=== PATIENT | female | born 1970 | race Two or more races ===

== ENCOUNTER 2022-11-12 22:19 | Emergency (ER) | payer MEDICAID, OTHER ==
[~2022-11-12] VITALS: Ht 149.9 cm; Wt 109.0 kg
[2022-11-12 23:28] VITALS: BP 151/75
[2022-11-12 23:48] LABS: Urine Bacteria NONE SEEN /hpf (None Seen); Urine Blood Negative /uL (Negative); Urine Specific Gravity 1.014 (1.001-1.035); Urine WBC 6 /hpf (0 - 5)
[2022-11-13 00:58] LABS: Basophils # (auto) 0.1 10 ^3/uL (0-0.2); Eosinophils # (auto) 0.1 10 ^3/uL (0-0.8); Hemoglobin 13.1 g/dL (12.2-16.2); Monocytes # (auto) 0.5 10 ^3/uL (0-1.3)
[2022-11-13 01:00] LABS: Basophils % (auto) 0.7 % (0.0-2.0); Eosinophils % (auto) 1.9 % (0.0-7.0); Hematocrit 39.7 % (36.0-46.0); Lymphocytes # (auto) 2.6 10 ^3/uL (0.4-5.4); Lymphocytes % (auto) 37.1 % (10.0-50.0); Mean Corpuscular Hemoglobin 26.7 pg (28.0-32.0); Mean Corpuscular Hgb Conc. 32.9 g/dL (32.0-36.0); Monocytes % (auto) 7.3 % (0.0-12.0); Neutrophils # (auto) 3.8 10 ^3/uL (1.6-8.6); Nucleated Red Blood Cells % 0.1 %; Red Cell Distribution Width 15.7 % (11.8-14.3); White Blood Cell 7.1 10^3/uL (4.4-10.8)
[2022-11-13 01:16] LABS: Albumin 3.1 g/dL (3.4-5.0)
[2022-11-13 01:24] LABS: BUN/Creatinine Ratio 23.8 (10.0-20.0); Total Protein 7.7 g/dL (6.4-8.2)
[2022-11-13 01:26] LABS: Bilirubin, Total 0.3 mg/dL (0.2-1.0)
[2022-11-13] MEDS ORDERED: IBUP-1455 PO (02:08)
[2022-11-13] MEDS ORDERED: KETOROLAC TROMETH 30 MG/ML 1ML VIAL IM ONE (02:15)
== END 2022-11-13 02:17 | disposition home or self-care (01) ==
LOC: ER 22:24
DX: M54.50 Low back pain, unspecified (principal); I87.8 Other specified disorders of veins; L30.8 Other specified dermatitis
CPT/HCPCS: 36415; 74176; 80053; 81001; 85025; 96372; 99285; J1885